=== PATIENT | male | born 1995 | race Caucasian/White ===

== ENCOUNTER 2021-03-26 19:47 | Emergency (ER) | payer OTHER ==
[~2021-03-26] VITALS: Ht 180.3 cm; Wt 74.8 kg
[2021-03-27] MEDS ORDERED: [UNRECOGNIZED DRUG - OTHER] TOP (00:26)
[2021-03-27] MEDS ORDERED: TRIAMCINOLONE A15 G4 TOP (00:26)
[2021-03-27] MEDS ORDERED: INTESTINEX680 M1 PO (00:26)
[2021-03-27] MEDS ORDERED: CEPHALEXIN500 M1 PO (00:26)
[2021-03-27] MEDS ORDERED: MEDROLPACK PO (00:26)
== END 2021-03-27 01:08 ==
LOC: ER 19:47
DX: L03.113 Cellulitis of right upper limb (principal); L03.114 Cellulitis of left upper limb; Z03.818 Encounter for observation for suspected exposure to other biological agents ruled out